=== PATIENT | female | born 1950 ===

== ENCOUNTER 2017-03-04 08:38 | Day surgery (SDC) | payer MEDICARE, BC ==
[~2017-03-04 08:38] MED LIST: Buffered Lidocaine 0.9% SYRIN* 5 ML/SYR SYRINGE INTRADERM ONE; Famotidine IV* 10 MG/ML 2 ML (20 mg) IV ONE
[2017-03-04] MEDS ORDERED: ceFAZolin 2 GM PREMIX(*) 2 GM/50 ML BAG IVPB ONE (08:47)
[2017-03-04] MEDS ORDERED: Famotidine IV* 10 MG/ML 2 ML (20 mg) ONE (08:47)
[2017-03-04] MEDS ORDERED: Buffered Lidocaine 0.9% SYRIN* 5 ML/SYR SYRINGE ONE (08:47)
[2017-03-04] MEDS ORDERED: Lidocaine 2% PF* 10 ML AMP ONE (10:18)
[2017-03-04] MEDS ORDERED: Ketorolac INJ* 30 MG/ML 1 ML VIAL ONE (10:33)
[2017-03-04] MEDS ORDERED: KETAMINE HCL* 50 MG/ML 10 ML VIAL ONE (10:33)
[2017-03-04] MEDS ORDERED: Lidocaine 2% PF * 5 ML VIAL ONE (10:33)
[2017-03-04] MEDS ORDERED: fentaNYL* 50 MCG/ML 2 ML VIAL (100 MCG VIAL) ONE (10:33)
[2017-03-04] MEDS ORDERED: Propofol* 10 MG/ML 20 ML BTL IV PUSH ONE ×2 (10:33→10:34)
[2017-03-04] MEDS ORDERED: Dexamethasone IV* 4 MG/ML 1 ML (4 MG) ONE (10:33)
[2017-03-04] MEDS ORDERED: Ondansetron INJ* 2 MG/ML VIAL ONE (10:33)
[2017-03-04] MEDS ORDERED: Midazolam* 1 MG/ML 5 ML VIAL (5 MG) ONE (10:34)
[2017-03-04] MEDS ORDERED: Midazolam* 1 MG/ML 2 ML VIAL (2 MG) ONE (11:17)
[2017-03-04] MEDS ORDERED: fentaNYL* 50 MCG/ML 2 ML VIAL (100 MCG VIAL) IV PRN (11:49)
[2017-03-04] MEDS ORDERED: oxyCODONE/Acetamin 5/325 MG* TAB PO PRN (11:49)
[2017-03-04] MEDS ORDERED: Ondansetron INJ* 2 MG/ML VIAL IV PRN (11:49)
[2017-03-04 13:21] VITALS: BP 144/89
--- NOTE | 2017-03-04 20:03 | RAD ---
INDICATION: Right first and second toe fusions. COMPARISON: There are no prior studies available for comparison. TECHNIQUE: 2.6 seconds of intermittent fluoroscopic guidance were provided and 2 spot films of the right forefoot were obtained in the operating room. FINDINGS: The films demonstrate a surgical plate present along the dorsal aspect of the distal first metatarsal and proximal phalanx transfixed with multiple screws and a single surgical screw spanning the first metatarsal-phalangeal joint. There is also a K wire the projects over the right second toe phalanges and distal second metatarsal. The bones are in normal alignment. IMPRESSION: INTRAOPERATIVE CONTROL FILMS. CPT II Codes: 6045F
--- NOTE | 2017-03-05 00:51 | OP ---
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 OPERATIVE PROCEDURE: Right first MTP joint fusion and second PIP resection arthroplasty. DESCRIPTION OF PROCEDURE: The patient was taken to the operating room where a longitudinal incision was made over the dorsum of the first MTP joint. Medial and lateral flap was raised to allow visua lization of the joint and the joint was prepared for arthrodesis with a small power gloria and then pi nned in a neutral position with an oblique 4.0 mm cannulated screw. We fixed the joint dorsally in a neutral position with the F3 plate. We then made a transverse elliptical incision over the second PIP joint. The collateral ligaments w ere incised to allow visualization of the joint surfaces, which were removed with a microsagittal sa w. This joint was then pinned in neutral position using a 0.062 C-wire. X-ray intraoperatively showed satisfactory position of both joint procedures. We irrigated and clos ed with interrupted Vicryl sutures and nylon for the skin and a compression dressing applied. [id number]/[facility] #: [id number]
== END 2017-03-04 14:05 | disposition home or self-care (01) ==
LOC: OR 08:38
PROVIDERS: ATTEND Orthopaedic Surgery
DX: M19.071 Primary osteoarthritis, right ankle and foot (principal); M20.41 Other hammer toe(s) (acquired), right foot; I10 Essential (primary) hypertension; M25.571 Pain in right ankle and joints of right foot; M20.11 Hallux valgus (acquired), right foot; Z88.8 Allergy status to other drugs, medicaments and biological substances; Z85.3 Personal history of malignant neoplasm of breast
CPT/HCPCS: 76000; C1713; C1776; J0690; J1100; J1885; J2001; J2250; J2405; J2704; J3010